=== PATIENT | male | born 1980 | race Caucasian/White ===

== ENCOUNTER 2022-05-14 12:09 | Emergency (ER) | payer OTHER ==
[2022-05-14] MEDS ORDERED: BABY ASPIRIN 81 MG CHEW PO ONE (12:22)
[2022-05-14 12:27] LABS: Absolute Neutrophil Ct (ANC) 4.62 x10^3/uL (1.4-6.9); Basophil (Absolute #) 0.05 x10^3/uL (0-0.4); Eosinophil % 3.7 % (0.00-5.0); Eosinophil (Absolute #) 0.31 x10^3/uL (0-0.5); Hematocrit 46.1 % (42-50); Hemoglobin 15.7 g/dL (12.5-18.0); Lymphocyte (Absolute #) 2.65 x10^3/uL (1.0-4.6); Lymphocytes % 31.5 % (24.0-44.0); Mean Cell Volume 95.1 fL (78-100); Mean Corpuscular Hemoglobin 32.4 pg (26-32); Mean Corpuscular Hgb Concent. 34.1 g/dL (32-36); Mean Platelet Volume 9.7 fL (7.5-11.0); Monocyte (Absolute #) 0.74 x10^3/uL (0.0-1.3); Monocytes % 8.8 % (0.0-12.0); Platelet Count 314 x10^3/uL (150-450); Red Blood Count 4.85 x10^6/uL (4.1-5.6); Red Cell Distribution Width 12.2 % (11.5-14.0); White Blood Count 8.4 x10^3/uL (4.0-10.5)
[2022-05-14 12:44] LABS: INR 0.98 (0.8-3.0); PROTIME 10.4 SECONDS (9.4-12.5); PTT 25.9 SECONDS (25.1-36.5)
[2022-05-14 12:53] LABS: ALBUMIN 4.6 g/dL (3.5-5.0); ALKALINE PHOSPHATASE 73 U/L (38-126); ANION GAP 9.3 MEQ/L (5-15); BLOOD UREA NITROGEN 13 mg/dL (9-20); CHLORIDE 106 mmol/L (98-107); Calcium 9.2 mg/dL (8.4-10.2); Carbon Dioxide 27 mmol/L (22-30); Creatinine 1 0.83 mg/dL (0.66-1.25); EST GLOMERULAR FILTRATION RATE > 60.0 ML/MIN; Glucose 89 mg/dL (74-106); NT PRO BNP 39.2 pg/mL (0-450); Potassium 3.7 mmol/L (3.5-5.1); SGOT/AST 26 U/L (17-59); SGPT/ALT 20 U/L (0-50); SODIUM 139 mmol/L (137-145); Total Protein 7.5 g/dL (6.3-8.2)
--- NOTE | 2022-05-14 12:57 | ERPHSYRPT ---
- History of Present Illness Historian: patient, other () Exam Limitations: no limitations Patient Subjective Stated Complaint: pt reports upper chest tightness for the last couple hours, states he feels as if he cannot take a normal breath without feeling anxious Triage Nursing Assessment: pt is aox3, pt appears anxious, afebrile, resps easy and non labored, cap refill < 3 seconds, radial pulses strong and equal, pt skin pink warm dry. Physician History: 42 yo wm w chest tightness and dyspnea x 2 hours. Pain started while pt was looking over some financial info. Pain was superior substernal wo radiation. Nothing makes the pain better or worse. Pt had diaphoresis but denies N/V. He denies h/o CAD/NV/HTN/DM/hyperlipidemia but does smoke 1ppd. Cough/coryza/fever all denied. 324 ASA given by who is a nurse before coming to ER. Timing/Duration: hour(s) (2 hours) Activities at Onset: other (Looking over financial info) Quality: tightness Location: substernal Chest Pain Radiation: no radiation Severity of Pain-Max: moderate Severity of Pain-Current: moderate Modifying Factors: Improves With: nothing Associated Symptoms: shortness of breath, diaphoresis Prior Chest Pain/Cardiac Workup: no prior chest pain Nitro Today/Relief: no nitro taken today Aspirin Treatment Today: 81 mg x 4 Allergies/Adverse Reactions: No Known Drug Allergies Allergy (Unverified 05/14/22 12:21) Home Medications: No Reportable Medications [No Reported Medications] 05/14/22 [History] Hx Tetanus, Diphtheria Vaccination/Date Given: Yes Hx Influenza Vaccination/Date Given: No Hx Pneumococcal Vaccination/Date Given: No Immunizations Up to Date: Yes Travel Risk - International Travel Have you traveled outside of the country in past 3 weeks: No - Coronavirus Screening Are you exhibiting any of the following symptoms?: No Close contact with a COVID-19 positive Pt in past 14-21 Days: No - Vaccine Status Have you recieved a Covid-19 vaccination: No - Review of Systems Constitutional: No Symptoms Eyes: No Symptoms Ears, Nose, & Throat: No Symptoms Respiratory: No Symptoms, Dyspnea Cardiac: No Symptoms, Chest Pain Abdominal/Gastrointestinal: No Symptoms Genitourinary Symptoms: No Symptoms Musculoskeletal: No Symptoms Skin: No Symptoms Neurological: No Symptoms Psychological: No Symptoms Endocrine: No Symptoms Hematologic/Lymphatic: No Symptoms Immunological/Allergic: No Symptoms - Past Medical History Pertinent Past Medical History: No - Past Surgical History Past Surgical History: No - Social History Smoking Status: Current every day smoker Drug Use: none Patient Lives Alone: No - Nursing Vital Signs Nursing Vital Signs: Initial Vital Signs Temperature 97.8 F 05/14/22 12:10 Pulse Rate 72 05/14/22 12:10 Respiratory Rate 20 05/14/22 12:10 Blood Pressure 134/85 05/14/22 12:10 O2 Sat by Pulse Oximetry 100 05/14/22 12:10 Pain Scale Pain Intensity 3 High systolic BP - Physical Exam General Appearance: no apparent distress, anxiety Eye Exam: PERRL/EOMI Ears, Nose, Throat Exam: normal ENT inspection, TMs normal, pharynx normal, moist mucous membranes Neck Exam: normal inspection, non-tender, supple, full range of motion, No meningismus, No mass, No Brudzinski, No Kernig's Respiratory Exam: normal breath sounds, lungs clear, airway intact, No chest tenderness, No respiratory distress Cardiovascular Exam: regular rate/rhythm, normal heart sounds, normal peripheral pulses, capillary refill <2 sec, No murmur Gastrointestinal/Abdomen Exam: soft, normal bowel sounds, No tenderness Back Exam: normal inspection, normal range of motion, No CVA tenderness, No vertebral tenderness Extremity Exam: normal inspection, normal range of motion Neurologic Exam: alert, oriented x 3, cooperative, 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, normal mood/affect, nml cerebellar function, nml station & gait, sensation nml, No motor deficits, No sensory deficit Skin Exam: normal color, warm, dry Lymphatic Exam: No adenopathy SpO2 Interpretation: normal SpO2: 100 O2 Delivery: Room Air - Course Nursing assessment & vital signs reviewed: Yes EKG Interpreted by Me: RATE (NSR/Rate 63/Normal QT-QTc/No acute ST segment changes/Normal Twaves) - Radiology Exams Chest X-ray Interpretation: Reviewed by me, Teleradiologist Report (Possible R apical PTX, so telerad consulted which stated PTX vs skin fold) - CT Exams Chest CT Interpretation: Discussed w/radiologist (COPD/atelectasis/chronic changes), Tele-radiologist Report Ordered Tests: Active Orders 24 hr Category Date Time Status EKG-ER Only STAT Care 05/14/22 12:16 Completed CHEST 1 VIEW (PORTABLE) Stat Exams 05/14/22 12:29 Completed CHEST WITHOUT CONTRAST [CT] Stat Exams 05/14/22 14:34 Completed CBC W DIFF Stat Lab 05/14/22 12:20 Completed CMP Stat Lab 05/14/22 12:20 Completed D-DIMER QUANTITATIVE Stat Lab 05/14/22 13:00 Completed NT PRO BNP Stat Lab 05/14/22 12:20 Completed PROTIME WITH INR Stat Lab 05/14/22 12:20 Completed PTT Stat Lab 05/14/22 12:20 Completed TROPONIN Q4H Lab 05/14/22 12:20 Completed TROPONIN Q4H Lab 05/14/22 15:21 Completed Medication Summary Discontinued Medications Generic Name Dose Route Start Last Admin Trade Name Freq PRN Reason Stop Dose Admin Aspirin 324 mg 05/14/22 12:22 05/14/22 12:28 Aspirin 81 Mg Tab.Chew PO 05/14/22 12:23 324 mg STAT ONE Administration Lab/Rad Data: Laboratory Result Diagrams 05/14/22 12:20 05/14/22 12:20 Laboratory Results 05/14/22 05/14/22 05/14/22 Range/Units 15:21 13:00 12:20 WBC (4.0-10.5) x10^3/uL RBC (4.1-5.6) x10^6/uL Hgb (12.5-18.0) g/dL Hct (42-50) % MCV (78-100) fL MCH (26-32) pg MCHC (32-36) g/dL RDW (11.5-14.0) % Plt Count (150-450) x10^3/uL MPV (7.5-11.0) fL Gran % (36.0-66.0) % Immature Gran % (Auto) (0.00-0.4) % Nucleat RBC Rel Count (0.00-0.1) % Eos # (Auto) (0-0.5) x10^3/uL Immature Gran # (Auto) (0.00-0.03) x10^3u/L Absolute Lymphs (auto) (1.0-4.6) x10^3/uL Absolute Monos (auto) (0.0-1.3) x10^3/uL Absolute Nucleated RBC (0.00-0.01) x10^3u/L Lymphocytes % (24.0-44.0) % Monocytes % (0.0-12.0) % Eosinophils % (0.00-5.0) % Basophils % (0.0-0.4) % Absolute Granulocytes (1.4-6.9) x10^3/uL Basophils # (0-0.4) x10^3/uL PT (9.4-12.5) SECONDS INR (0.8-3.0) APTT (25.1-36.5) SECONDS D-Dimer < 0.19 (0.0-0.50) mg/L Sodium (137-145) mmol/L Potassium (3.5-5.1) mmol/L Chloride (98-107) mmol/L Carbon Dioxide (22-30) mmol/L Anion Gap (5-15) MEQ/L BUN (9-20) mg/dL Creatinine (0.66-1.25) mg/dL Estimated GFR ML/MIN Glucose (74-106) mg/dL Calcium (8.4-10.2) mg/dL Total Bilirubin (0.2-1.3) mg/dL AST (17-59) U/L ALT (0-50) U/L Alkaline Phosphatase (38-126) U/L Troponin I < 0.012 < 0.012 (0.000-0.034) ng/mL NT-Pro-B Natriuret Pep (0-450) pg/mL Serum Total Protein (6.3-8.2) g/dL Albumin (3.5-5.0) g/dL 05/14/22 05/14/22 05/14/22 Range/Units 12:20 12:20 12:20 WBC 8.4 (4.0-10.5) x10^3/uL RBC 4.85 (4.1-5.6) x10^6/uL Hgb 15.7 (12.5-18.0) g/dL Hct 46.1 (42-50) % MCV 95.1 (78-100) fL MCH 32.4 H (26-32) pg MCHC 34.1 (32-36) g/dL RDW 12.2 (11.5-14.0) % Plt Count 314 (150-450) x10^3/uL MPV 9.7 (7.5-11.0) fL Gran % 55.0 (36.0-66.0) % Immature Gran % (Auto) 0.4 (0.00-0.4) % Nucleat RBC Rel Count 0.0 (0.00-0.1) % Eos # (Auto) 0.31 (0-0.5) x10^3/uL Immature Gran # (Auto) 0.03 (0.00-0.03) x10^3u/L Absolute Lymphs (auto) 2.65 (1.0-4.6) x10^3/uL Absolute Monos (auto) 0.74 (0.0-1.3) x10^3/uL Absolute Nucleated RBC 0.00 (0.00-0.01) x10^3u/L Lymphocytes % 31.5 (24.0-44.0) % Monocytes % 8.8 (0.0-12.0) % Eosinophils % 3.7 (0.00-5.0) % Basophils % 0.6 (0.0-0.4) % Absolute Granulocytes 4.62 (1.4-6.9) x10^3/uL Basophils # 0.05 (0-0.4) x10^3/uL PT 10.4 (9.4-12.5) SECONDS INR 0.98 (0.8-3.0) APTT 25.9 (25.1-36.5) SECONDS D-Dimer (0.0-0.50) mg/L Sodium 139 (137-145) mmol/L Potassium 3.7 (3.5-5.1) mmol/L Chloride 106 (98-107) mmol/L Carbon Dioxide 27 (22-30) mmol/L Anion Gap 9.3 (5-15) MEQ/L BUN 13 (9-20) mg/dL Creatinine 0.83 (0.66-1.25) mg/dL Estimated GFR > 60.0 ML/MIN Glucose 89 (74-106) mg/dL Calcium 9.2 (8.4-10.2) mg/dL Total Bilirubin 0.60 (0.2-1.3) mg/dL AST 26 (17-59) U/L ALT 20 (0-50) U/L Alkaline Phosphatase 73 (38-126) U/L Troponin I (0.000-0.034) ng/mL NT-Pro-B Natriuret Pep 39.2 (0-450) pg/mL Serum Total Protein 7.5 (6.3-8.2) g/dL Albumin 4.6 (3.5-5.0) g/dL - Progress Progress: improved Progress Note: 05/14/22 16:01 Pt became pain free in ER wo treatment Heart Score 2 Wells Score 0 CXR/Labs/CT results reviewed All results reviewed w pt Spoke w Radiologist about CT results/No TAA just mild enlargement of Ascending thoracic aorta/No infiltrates Pt discharged in stable condition No subsequent chest pain after pain abated 05/14/22 16:04 05/14/22 23:12 Counseled pt/family regarding: lab results, diagnosis, need for follow-up, rad results - Departure Departure Disposition: Home Clinical Impression: Chest pain Condition: Stable Critical Care Time: No Referrals: MACI HAMILTON [Primary Care Provider] - Follow up/PCP as directed Instructions: Chest Pain (DC) Additional Instructions: Follow up with your family MD Return to ER for increasing or sustained chest pain or shortness of breath
[2022-05-14 15:40] VITALS: BP 114/70; PULSE 54
[2022-05-14 16:06] VITALS: O2SAT 100
--- NOTE | 2022-05-14 18:18 | XRAY ---
Indication: Left chest pain. Multiple contiguous axial images obtained through the chest without contrast. Comparison: None Lungs demonstrates mild bilateral dependent atelectasis. No suspicious pulmonary mass, infiltrate, consolidation, effusion, or pneumothorax. Heart not enlarged. Aorta is normal in course and caliber. No pathologic mediastinal lymphadenopathy. Bony thorax intact. Limited upper abdomen including adrenal glands are unremarkable. Impression: Mild bilateral dependent atelectasis. Remaining CT chest without contrast exam is negative. Comment: Preliminary interpretation made by [facility]. No critical discrepancy.
--- NOTE | 2022-05-14 18:20 | XRAY ---
Indication: Chest pain. Comparison: None Portable chest hyperinflated and clear. Heart not enlarged. Bony thorax intact with old right clavicle fracture. Comment: Preliminary interpretation made by [facility]. No critical discrepancy.
== END 2022-05-14 16:21 | disposition home or self-care (01) ==
LOC: ED 12:09
DX: R07.9 Chest pain, unspecified (principal); R06.00 Dyspnea, unspecified; Z28.310 Unvaccinated for COVID-19; Z72.0 Tobacco use
CPT/HCPCS: 36415; 71045; 71250; 80053; 83880; 84484; 85025; 85379; 85610; 85730; 93005; 99284; A9270-GY

== ENCOUNTER 2023-04-18 06:03 | Day surgery (SDC) | payer OTHER ==
[2023-04-18 06:20] VITALS: RESP 18
[2023-04-18] MEDS ORDERED: Lactated Ringers 1,000 ML IV SCH (06:30)
[2023-04-18] MEDS ORDERED: Versed 2 MG/2 ML Injection ONE (07:31)
[2023-04-18] MEDS ORDERED: DIPRIVAN 200 MG/20 ML IV ONE ×2 (07:32→08:01)
[2023-04-18] MEDS ORDERED: Xylocaine-Mpf 2% 5 Ml Vial ONE (07:32)
[2023-04-18] MEDS ORDERED: ROBINUL ONE (07:51)
[2023-04-18 08:37] VITALS: TEMP 97.4; O2SAT 99
[2023-04-18 08:49] VITALS: BP 125/80; PULSE 49
--- NOTE | 2023-04-18 11:30 | OP ---
SURGERY DATE/TIME: 04/18/2023 0745 PREOPERATIVE DIAGNOSES: 1) Chronic gastroesophageal reflux disease. 2) Screening colonoscopy. POSTOPERATIVE DIAGNOSES: 1) Normal EGD. 2) Normal colon. PROCEDURES: 1) EGD. 2) Colonoscopy. SURGEON: Antoni Vázquez M.D. ANESTHESIA: MAC by Osorio Gomez CRNA. ESTIMATED BLOOD LOSS: None. SPECIMENS: None. DESCRIPTION OF PROCEDURE: After informed written consent was obtained, the patient was taken to the endoscopy suite and placed in left lateral decubitus position. He had a bite block inserted and anesthesia was titrated to desired level of consciousness. The endoscope was inserted in the posterior oropharynx and under direct visualization the esophagus was traversed. There was a normal esophageal mucosa free of any lesions or defects. Upon entering the stomach there is normal rugated gastric mucosa with no ulceration or lesions noted. The pylorus is traversed and the first and second portions of the duodenum had a normal mucosal appearance free of any lesions or defects. Upon withdrawal again all mucosal structures appeared normal. The gastroesophageal junction appeared normal upon withdrawal. Once again the esophageal mucosa appeared normal. The scope was removed and the scopes were switched. Digital rectal exam showed normal sphincter tone and no internal lesions. The scope was inserted in the rectum and sequentially the entire colonic mucosa was traversed. The level of the cecum was reached and verified with direct visualization of the ileocecal valve. Upon withdrawal careful mucosal inspection revealed no gross abnormalities. Prep was noted to be good. Prior to withdrawal retroflexion showed no internal lesions. The scope was removed and the patient was transferred to the recovery room in good condition.
== END 2023-04-18 09:05 | disposition home or self-care (01) ==
LOC: SDC 06:03
PROVIDERS: ATTEND Family Medicine
DX: Z12.11 Encounter for screening for malignant neoplasm of colon (principal); K21.9 Gastro-esophageal reflux disease without esophagitis
CPT/HCPCS: 93005; J2250; J2704